=== PATIENT | female | born 1985 | race African-American/Black ===

== ENCOUNTER 2016-07-25 09:33 | Emergency (ER) | payer OTHER ==
[~2016-07-25] VITALS: Ht 162.6 cm; Wt 165.0 kg
[~2016-07-25 09:33] MED LIST: AMLO5TAB2 PO; IBUP600 PO; TYLCOD5S PO
[2016-07-25 09:36] VITALS: BP 169/80; PULSE 86; RESP 16; TEMP 98.2; O2SAT 98
[2016-07-25] MEDS ORDERED: KETOROLAC TROMETHAMINE 30 MG/ML (IVP) VIAL IV PUSH ONE (09:45)
[2016-07-25] MEDS ORDERED: SODIUM CHLORIDE 0.9% FLUSH 5 ML FLUSH IVF PRN (09:45)
--- NOTE | 2016-07-25 09:47 | PD ---
HPI Chief Complaint: Chest Pain Time Seen by Provider: 09:42 Travel History International Travel<30 days: No Contact w/Intl Traveler<30days: No Traveled to known affect area: No History of Present Illness HPI 30-year-old female with history of hypertension here for evaluation of chest pain. The patient has had intermittent left-sided chest pain for the last week described as a tightness, radiating up into her neck, no modifying factors. No known history of cardiac disease. No family history of cardiac disease. She is a nonsmoker. No fevers, chills, cough, recent illness. No paresthesias or motor deficits. No history of DVT or PE. PFSH Past Medical History Asthma: Yes Blood Disorders: No Cardiovascular Problems: No Diminished Hearing: No Gastrointestinal Disorders: No Genitourinary: No Hypertension: Yes Immune Disorder: No Musculoskeletal: Yes (CHRONIC BACK PAIN) Neurologic: No Psychiatric: No Reproductive: No Respiratory: Yes (ASTHMA) : 6 Para: 4 Miscarriage: 2 Past Surgical History AICD: No Arteriovenous Shunt: No Insulin Pump: No Joint Replacement: No Pacemaker: No Other Surgery: No Social History Alcohol Use: Yes (OCC) Tobacco Use: No Substance Use: No Allergies-Medications (Allergen,Severity, Reaction): Coded Allergies: Banana (Verified Allergy, Severe, Rash, 07/25/16) Reported Meds & Prescriptions Reported Meds & Active Scripts Active Amlodipine (Amlodipine Besylate) 5 Mg Tab 5 Mg PO DAILY Reported Fusion Plus (Multi-Vit/Iron-Vitamin C-K06-Alfix Acid-Lacto) 130-75-0.12-1,250- 30 mg Cap 1 Cap PO DAILY Review of Systems Except as stated in HPI: all other systems reviewed are Neg Physical Exam Narrative GENERAL: Well-developed, well-nourished, overweight, comfortable, no acute distress. SKIN: Warm and dry. HEAD: Atraumatic. Normocephalic. EYES: Pupils equal and round. No scleral icterus. No injection or drainage. ENT: Mucous membranes pink and moist. CARDIOVASCULAR: Regular rate and rhythm. RESPIRATORY: No accessory muscle use. Clear to auscultation. Breath sounds equal bilaterally. GASTROINTESTINAL: Abdomen soft, non-tender, nondistended. MUSCULOSKELETAL: No obvious deformities. No clubbing. No cyanosis. No edema. Mild left-sided chest wall tenderness. NEUROLOGICAL: Awake and alert. No obvious cranial nerve deficits. Motor grossly within normal limits. Normal speech. PSYCHIATRIC: Appropriate mood and affect; insight and judgment normal. Data Data Last Documented VS Vital Signs Date Time Temp Pulse Resp B/P Pulse Ox O2 Delivery O2 Flow Rate FiO2 07/25/16 09:53 90 07/25/16 09:50 100 Room Air 07/25/16 09:36 98.2 16 169/80 Orders Electrocardiogram (07/25/16 09:45) Basic Metabolic Panel (Bmp) (07/25/16 09:45) Ckmb (Isoenzyme) Profile (07/25/16 09:45) Complete Blood Count With Diff (07/25/16 09:45) Magnesium (Mg) (07/25/16 09:45) Prothrombin Time / Inr (Pt) (07/25/16 09:45) Act Partial Throm Time (Ptt) (07/25/16 09:45) Troponin I (07/25/16 09:45) Chest, Single Ap (07/25/16 09:45) Ecg Monitoring (07/25/16 09:45) Iv Access Insert/Monitor (07/25/16 09:45) Oximetry (07/25/16 09:45) Sodium Chloride 0.9% Flush (Ns Flush) (07/25/16 09:45) Beta Hcg (Quant/Titer) (07/25/16 09:45) D-Dimer (07/25/16 09:45) Ketorolac Inj (Toradol Inj) (07/25/16 09:45) Ct Pulmonary Angiogram (07/25/16 10:41) CKMB (07/25/16 10:00) CKMB% (07/25/16 10:00) Iohexol 350 Inj (Omnipaque 350 Inj) (07/25/16 12:27) Labs Laboratory Tests Test 07/25/16 10:00 White Blood Count 5.1 TH/MM3 Red Blood Count 4.13 MIL/MM3 Hemoglobin 11.4 GM/DL Hematocrit 34.6 % Mean Corpuscular Volume 83.8 FL Mean Corpuscular Hemoglobin 27.7 PG Mean Corpuscular Hemoglobin 33.1 % Concent Red Cell Distribution Width 16.4 % Platelet Count 277 TH/MM3 Mean Platelet Volume 7.5 FL Neutrophils (%) (Auto) 46.7 % Lymphocytes (%) (Auto) 40.9 % Monocytes (%) (Auto) 8.5 % Eosinophils (%) (Auto) 3.2 % Basophils (%) (Auto) 0.7 % Neutrophils # (Auto) 2.4 TH/MM3 Lymphocytes # (Auto) 2.1 TH/MM3 Monocytes # (Auto) 0.4 TH/MM3 Eosinophils # (Auto) 0.2 TH/MM3 Basophils # (Auto) 0.0 TH/MM3 CBC Comment DIFF FINAL Differential Comment Prothrombin Time 10.4 SEC Prothromb Time International 0.9 RATIO Ratio Activated Partial 26.8 SEC Thromboplast Time D-Dimer Quantitative (PE/DVT) 0.89 MG/L FEU Sodium Level 136 MEQ/L Potassium Level 4.0 MEQ/L Chloride Level 102 MEQ/L Carbon Dioxide Level 27.7 MEQ/L Anion Gap 6 MEQ/L Blood Urea Nitrogen 11 MG/DL Creatinine 0.85 MG/DL Estimat Glomerular Filtration 95 ML/MIN Rate Random Glucose 131 MG/DL Calcium Level 9.0 MG/DL Magnesium Level 2.1 MG/DL Total Creatine Kinase 318 U/L Creatine Kinase MB LESS THAN 0.5 NG/ML Creatine Kinase MB % 0.2 % Troponin I LESS THAN 0.02 NG/ML Human Chorionic Gonadotropin, LESS THAN 1 Quant MIU/ML MDM Medical Decision Making Medical Screen Exam Complete: Yes Emergency Medical Condition: Yes Medical Record Reviewed: Yes Interpretation(s) EKG: Sinus, rate 91, normal axis, normal intervals, no acute ischemic abnormality. Differential Diagnosis ACS, pneumothorax, pericarditis, PE, pneumonia, dissection, musculoskeletal chest wall pain Narrative Course Vital signs show heart rate 86, blood pressure 169/80, pulse ox 98% on room air , oral temp of 98.2F. CBC shows WBC 5.1, hemoglobin 11.4, hematocrit 34.6, platelets 277. BMP is unremarkable. Cardiac enzymes are negative. Beta hCG is negative. D-dimer is 0.89. Chest x-ray: The lungs are clear. CT pulmonary angiogram: CONCLUSION: 1. No PE is identified. 2. Otherwise, no acute finding is visualized within the chest. Patient was made aware of all findings. She is resting comfortably. I do not believe her chest pain is cardiac in nature. I believe she is stable for discharge home with outpatient follow-up with her primary care physician this week. She was informed on when to return to the emergency department. She verbalizes understanding and agreement with plan. Diagnosis Primary Impression: Atypical chest pain Referrals: Primary Care Physician 3 days Additional Instructions: Follow-up with a primary care physician this week. Return to the emergency department for worsening symptoms or any other concerns. Disposition: 01 DISCHARGE HOME Condition: Stable Henry Joiner MD Jul 25, 2016 09:47
[2016-07-25 09:50] VITALS: O2SAT 100
[2016-07-25] MEDS ORDERED: FE FCAP3 PO (09:50)
[2016-07-25 10:31] LABS: AUTOMATED NEUTROPHIL # 2.4 TH/MM3 (1.8-7.7); BASOPHIL % 0.7 % (0.0-2.0); EOSINOPHIL # 0.2 TH/MM3 (0-0.4); EOSINOPHIL % 3.2 % (0.0-4.0); HEMATOCRIT 34.6 % (35.0-46.0); HEMO FLAGS DIFF FINAL; LYMPH % 40.9 % (9.0-44.0); LYMPHOCYTE # 2.1 TH/MM3 (1.0-4.8); MEAN CELL VOLUME 83.8 FL (80.0-100.0); MEAN CORPUSCULAR HEMOGLOBIN 27.7 PG (27.0-34.0); MEAN CORPUSCULAR HGB CONC 33.1 % (32.0-36.0); MONO % 8.5 % (0.0-8.0); NEUT % 46.7 % (16.0-70.0); PLATELET COUNT 277 TH/MM3 (150-450); RED BLOOD COUNT 4.13 MIL/MM3 (4.00-5.30); RED CELL DISTRIBUTION WIDTH 16.4 % (11.6-17.2); WHITE BLOOD COUNT 5.1 TH/MM3 (4.0-11.0)
[2016-07-25 10:34] LABS: APTT (PATIENT) 26.8 SEC (24.3-30.1); INTERNATIONAL NORMALIZED RATIO 0.9 RATIO; PROTHROMBIN TIME - PATIENT 10.4 SEC (9.8-11.6)
--- NOTE | 2016-07-25 10:34 | RADRPT ---
EXAM DATE/TIME: 07/25/2016 09:59 [facility] COMPARISON: CHEST SINGLE AP, August 01, 2014, 22:02. INDICATIONS : Chest pain for 1 week. MEDICAL HISTORY : Asthma. SURGICAL HISTORY : None. ENCOUNTER: Initial ACUITY: 1 week PAIN SCORE: 10/10 LOCATION: Bilateral chest FINDINGS: A single view of the chest demonstrates the lungs to be symmetrically aerated without evidence of mas s, infiltrate or effusion. The cardiomediastinal contours are unremarkable. Osseous structures are intact. CONCLUSION: The lungs are clear. Dylan Mackey MD on July 25, 2016 at 10:32 Board Certified Radiologist. This report was verified electronically.
[2016-07-25 10:38] LABS: ANION GAP 6 MEQ/L (5-15); BICARBONATE 27.7 MEQ/L (21.0-32.0); BLOOD UREA NITROGEN 11 MG/DL (7-18); CHLORIDE 102 MEQ/L (98-107); GLOMERULAR FILTRATION RATE 95 ML/MIN (>89); MAGNESIUM 2.1 MG/DL (1.5-2.5); SODIUM (NA) 136 MEQ/L (136-145)
[2016-07-25 10:42] LABS: BETA HCG QUANT LESS THAN 1 MIU/ML (0-5); CREATINE KINASE 318 U/L (26-192)
[2016-07-25 10:55] LABS: CKMB LESS THAN 0.5 NG/ML (0.5-3.6)
[2016-07-25] MEDS ORDERED: IOHEXOL 350 MG/ML 10 ML VIAL (for RAD DIAG) IV ONE (12:27)
--- NOTE | 2016-07-25 13:11 | RADRPT ---
EXAM DATE/TIME: 07/25/2016 12:08 [facility] COMPARISON: CHEST SINGLE AP, July 25, 2016, 9:59. INDICATIONS : left side chest pain leg swelling today. IV CONTRAST: 50 cc Omnipaque 350 (iohexol) IV RADIATION DOSE: 23.23 CTDIvol (mGy) MEDICAL HISTORY : Cardiovascular disease. Hypertension. SURGICAL HISTORY : None. ENCOUNTER: Initial ACUITY: 1 day PAIN SCALE: 10/10 LOCATION: chest TECHNIQUE: Volumetric scanning of the chest was performed using a pulmonary embolism protocol MIP images were re constructed. Using automated exposure control and adjustment of the mA and/or kV according to patien t size, radiation dose was kept as low as reasonably achievable to obtain optimal diagnostic quality images. FINDINGS: PULMONARY ARTERIES: No filling defects are seen in the pulmonary arteries through the segmental level. LUNGS: There is no consolidation or pneumothorax . No concerning pulmonary nodule is visualized. PLEURAE: There is no pleural thickening or pleural effusion. MEDIASTINUM: There is good visualization of the great vessels of the middle mediastinum. No evidence of mediastin al or hilar adenopathy/mass. MUSCULOSKELETAL: No acute abnormality is identified. MISCELLANEOUS: The visualized upper abdominal organs demonstrate no acute abnormality. CONCLUSION: 1. No PE is identified. 2. Otherwise, no acute finding is visualized within the chest. Aubrey Urrutia MD on July 25, 2016 at 12:58 Board Certified Radiologist. This report was verified electronically.
[2016-07-25 14:00] VITALS: BP 148/88
--- NOTE | 2016-07-25 18:40 | EKG ---
Date Performed: 07/25/2016 Time Performed: 09:53:13 PTAGE: 30 years EKG: Sinus rhythm PREVIOUS TRACING : 05/03/2016 11.31 Compared to prior tracing no significant change DOCTOR: Franklin Tracy Interpretating Date/Time 07/25/2016 18:39:42
== END 2016-07-25 14:18 | disposition home or self-care (01) ==
LOC: NEPA 09:33
DX: R07.89 Other chest pain (principal); I10 Essential (primary) hypertension; J45.909 Unspecified asthma, uncomplicated; G89.29 Other chronic pain
CPT/HCPCS: 71010; 71275; 80048; 82550; 82552; 83735; 84484; 84702; 85025; 85379; 85610; 85730; 93005; 96374; 99285; J1885; Q9967

== ENCOUNTER 2017-07-28 09:08 | Emergency (ER) | payer OTHER ==
[~2017-07-28] VITALS: Ht 162.6 cm; Wt 159.0 kg
[~2017-07-28 09:08] MED LIST changes: +FE FCAP3 PO; -IBUP600 PO; -TYLCOD5S PO
[2017-07-28 09:29] VITALS: BP 148/82; PULSE 70; RESP 14; TEMP 98.9; O2SAT 99
[2017-07-28] MEDS ORDERED: TRAZ100T10 PO (09:50)
[2017-07-28] MEDS ORDERED: ALBUAER3 INH (09:50)
[2017-07-28] MEDS ORDERED: AMLO10TA2 PO (09:50)
[2017-07-28] MEDS ORDERED: SYMB160A INH (09:50)
[2017-07-28] MEDS ORDERED: HYDR12.56 PO (09:50)
[2017-07-28] MEDS ORDERED: OXYC1TAB36 PO (09:50)
[2017-07-28] MEDS ORDERED: DULO-39 PO (09:50)
[2017-07-28] MEDS ORDERED: GABA300C5 PO (09:50)
[2017-07-28] MEDS ORDERED: FE FCAP PO (09:50)
[2017-07-28] MEDS ORDERED: CITA20TA4 PO (09:50)
--- NOTE | 2017-07-28 09:53 | PD ---
HPI Chief Complaint: Pain: Acute or Chronic Time Seen by Provider: 09:50 Travel History International Travel<30 days: No Contact w/Intl Traveler<30days: No Traveled to known affect area: No History of Present Illness HPI 31-year-old female came to the emergency room with history of left-sided chest pain. She describes the pain as sharp stabbing sensation. It started yesterday and has been there continuously up until now. Pain is worse on coughing or moving. Patient has had this kind of pain in the past and she said she was in [facility] couple months ago. Does not recall getting a stress test at that time. Vital signs are stable. Patient is not a smoker. No family history of coronary artery disease. PFS Past Medical History Narrative Medical List of her past medical, surgical, social and family history as reviewed from the nursing note. Anemia: Yes Asthma: Yes Blood Disorders: No Anxiety: Yes Depression: Yes Cardiovascular Problems: Yes (htn) Diminished Hearing: No Gastrointestinal Disorders: No Genitourinary: No Hypertension: Yes Immune Disorder: No Musculoskeletal: Yes (CHRONIC BACK PAIN) Neurologic: No Psychiatric: No Reproductive: No Respiratory: Yes (asthma) Influenza Vaccination: No ?: Not : 6 Para: 4 Miscarriage: 2 Past Surgical History Surgical History: No Previous Surgery AICD: No Arteriovenous Shunt: No Insulin Pump: No Joint Replacement: No Pacemaker: No Other Surgery: No Social History Alcohol Use: Yes (OCC) Tobacco Use: No Substance Use: No Allergies-Medications (Allergen,Severity, Reaction): Coded Allergies: banana (Unverified Allergy, Severe, Rash, 07/28/17) Comments List of allergies reviewed from the nursing note. Reported Meds & Prescriptions Reported Meds & Active Scripts Active Reported Integra (Multi-Vit/Iron-B Comp-Vit C) 62.5-62.5-40-3 mg Cap Unknown Dose PO DAILY Proair Hfa 8.5 GM Inh (Albuterol Sulfate) 90 Mcg/Act Aer 2 Puff INH Q4H PRN 108 mcg/actuation Symbicort Inh (Budesonide/Formoterol Fumarate) 160-4.5 Mcg/Act Aero 2 Puff INH Q12HR Amlodipine (Amlodipine Besylate) 10 Mg Tab 10 Mg PO DAILY Hydrochlorothiazide 12.5 Mg Tab 12.5 Mg PO DAILY Gabapentin 300 Mg Cap 300 Mg PO TID Oxycodone-Acetaminophen 10-325 mg Tab 1 Tab PO Q4H PRN Duloxetine DR (Duloxetine HCl) 40 Mg Capdr 40 Mg PO BID Citalopram (Citalopram Hydrobromide) 20 Mg Tab 20 Mg PO DAILY Trazodone (Trazodone HCl) 100 Mg Tablet 100 Mg PO HS Fusion Plus (Multi-Vit/Iron-Vitamin C-L08-Azfyk Acid-Lacto) 130-75-0.12-1,250- 30 mg Cap 1 Cap PO DAILY Narrative Medication List of her home medications reviewed from the nursing note. Review of Systems Except as stated in HPI: all other systems reviewed are Neg Cardiovascular: Positive: Chest Pain or Discomfort Physical Exam Narrative GENERAL: Awake, alert, morbidly obese, anxious, moderate distress SKIN: Focused skin assessment warm/dry. HEAD: Atraumatic. Normocephalic. EYES: Pupils equal and round. No scleral icterus. No injection or drainage. ENT: No nasal bleeding or discharge. Mucous membranes pink and moist. NECK: Trachea midline. No JVD. CARDIOVASCULAR: Regular rate and rhythm. No murmur appreciated. Tender on palpation of the left chest wall RESPIRATORY: No accessory muscle use. Clear to auscultation. Breath sounds equal bilaterally. GASTROINTESTINAL: Abdomen soft, non-tender, nondistended. Hepatic and splenic margins not palpable. MUSCULOSKELETAL: No obvious deformities. No clubbing. No cyanosis. No edema. NEUROLOGICAL: Awake and alert. No obvious cranial nerve deficits. Motor grossly within normal limits. Normal speech. PSYCHIATRIC: Appropriate mood and affect; insight and judgment normal. Data Data Last Documented VS Vital Signs Date Time Temp Pulse Resp B/P (MAP) Pulse Ox O2 Delivery O2 Flow Rate FiO2 07/28/17 12:30 07/28/17 12:29 67 18 98 Room Air 07/28/17 09:29 98.9 Orders Orders Electrocardiogram (07/28/17 10:10) Basic Metabolic Panel (Bmp) (07/28/17 10:10) Complete Blood Count With Diff (07/28/17 10:10) D-Dimer (07/28/17 10:10) Magnesium (Mg) (07/28/17 10:10) Prothrombin Time / Inr (Pt) (07/28/17 10:10) Troponin I (07/28/17 10:10) Ecg Monitoring (07/28/17 10:10) Bilateral Bp Monitoring (07/28/17 10:10) Iv Access Insert/Monitor (07/28/17 10:10) Oximetry (07/28/17 10:10) Oxygen Administration (07/28/17 10:10) Aspirin Chew (Aspirin Chew) (07/28/17 10:15) Sodium Chloride 0.9% Flush (Ns Flush) (07/28/17 10:15) Chest, Pa & Lat (07/28/17 10:10) Ct Pulmonary Angiogram (07/28/17 ) Iohexol 350 Inj (Omnipaque 350 Inj) (07/28/17 11:39) Ed Discharge Order (07/28/17 11:51) Labs Laboratory Tests Test 07/28/17 10:15 White Blood Count 5.0 TH/MM3 Red Blood Count 4.10 MIL/MM3 Hemoglobin 11.6 GM/DL Hematocrit 35.0 % Mean Corpuscular Volume 85.4 FL Mean Corpuscular Hemoglobin 28.4 PG Mean Corpuscular Hemoglobin Concent 33.2 % Red Cell Distribution Width 16.0 % Platelet Count 279 TH/MM3 Mean Platelet Volume 7.3 FL Neutrophils (%) (Auto) 42.6 % Lymphocytes (%) (Auto) 44.5 % Monocytes (%) (Auto) 9.0 % Eosinophils (%) (Auto) 3.1 % Basophils (%) (Auto) 0.8 % Neutrophils # (Auto) 2.1 TH/MM3 Lymphocytes # (Auto) 2.2 TH/MM3 Monocytes # (Auto) 0.5 TH/MM3 Eosinophils # (Auto) 0.2 TH/MM3 Basophils # (Auto) 0.0 TH/MM3 CBC Comment DIFF FINAL Differential Comment Prothrombin Time 10.3 SEC Prothromb Time International Ratio 1.0 RATIO D-Dimer Quantitative (PE/DVT) 0.78 MG/L FEU Blood Urea Nitrogen 10 MG/DL Creatinine 0.89 MG/DL Random Glucose 96 MG/DL Calcium Level 8.9 MG/DL Magnesium Level 2.2 MG/DL Sodium Level 138 MEQ/L Potassium Level 4.2 MEQ/L Chloride Level 105 MEQ/L Carbon Dioxide Level 27.8 MEQ/L Anion Gap 5 MEQ/L Estimat Glomerular Filtration Rate 90 ML/MIN Troponin I LESS THAN 0.02 NG/ML MDM Medical Decision Making Medical Screen Exam Complete: Yes Emergency Medical Condition: Yes Medical Record Reviewed: Yes Interpretation(s) Twelve-lead EKG was reviewed by me. Normal sinus rhythm, normal axis, motion artifacts, nonspecific ST-T wave changes. Heart rate of 74 bpm. Differential Diagnosis ACS, nonspecific chest pain, non-STEMI, PE Narrative Course 10:42 AM awaiting for blood test results. Patient was given 2 baby aspirin. 11:51 AM blood test results have come back and within normal limit except for slight elevation of the d-dimer. Based on that a CT pulmonary angiogram was ordered. CT scan has been reported negative for any PE. I'll discharge her home. Given her negative troponin, normal EKG and he is pain for almost 24 hours I'm comfortable discharging her home with one set of negative troponin. Procedures EKG Prior to Arrival: No Diagnosis Primary Impression: Atypical chest pain Referrals: Primary Care Physician 2 days Additional Instructions: Please return to ER if condition worsens or any other new concerns. Otherwise follow-up with your primary care. Med/Other Pt SpecificInfo: No Change to Meds Disposition: 01 DISCHARGE HOME Condition: Stable Elkin Garcia MD Jul 28, 2017 09:53
[2017-07-28] MEDS ORDERED: SODIUM CHLORIDE 0.9% FLUSH 10 ML FLUSH IVF PRN (10:15)
[2017-07-28] MEDS ORDERED: ASPIRIN 81 MG CHEW TAB PO ONE (10:15)
[2017-07-28 10:19] VITALS: BP_SYST 100; BP_SYST 124; BP_DIAS 59; BP_DIAS 76; PULSE 69
[2017-07-28 10:32] LABS: AUTOMATED NEUTROPHIL # 2.1 TH/MM3 (1.8-7.7); BASOPHIL % 0.8 % (0.0-2.0); EOSINOPHIL # 0.2 TH/MM3 (0-0.4); EOSINOPHIL % 3.1 % (0.0-4.0); HEMOGLOBIN 11.6 GM/DL (11.6-15.3); LYMPH % 44.5 % (9.0-44.0); LYMPHOCYTE # 2.2 TH/MM3 (1.0-4.8); MEAN CELL VOLUME 85.4 FL (80.0-100.0); MEAN CORPUSCULAR HEMOGLOBIN 28.4 PG (27.0-34.0); MEAN CORPUSCULAR HGB CONC 33.2 % (32.0-36.0); MEAN PLATELET VOLUME 7.3 FL (7.0-11.0); MONOCYTE # 0.5 TH/MM3 (0-0.9); NEUT % 42.6 % (16.0-70.0); PLATELET COUNT 279 TH/MM3 (150-450)
[2017-07-28 10:44] LABS: PROTHROMBIN TIME - PATIENT 10.3 SEC (9.8-11.6)
--- NOTE | 2017-07-28 10:46 | RADRPT ---
EXAM DATE/TIME: 07/28/2017 10:34 [facility] COMPARISON: No previous studies available for comparison. INDICATIONS : Chest pain. MEDICAL HISTORY : None. SURGICAL HISTORY : None. ENCOUNTER: Initial ACUITY: 2 days PAIN SCORE: 8/10 LOCATION: Bilateral middle chest. FINDINGS: The lungs are under aerated with minimal bibasilar parenchymal changes without consolidation. The hea rt and pulmonary vascularity are normal. The portion of the bony skeleton visualized is unremarkable. CONCLUSION: Underated with minimal bibasilar parenchymal changes Scott Mccabe MD FACR on July 28, 2017 at 10:44 Board Certified Radiologist. This report was verified electronically.
[2017-07-28 10:54] LABS: TROPONIN I LESS THAN 0.02 NG/ML (0.02-0.05)
[2017-07-28 10:56] LABS: BICARBONATE 27.8 MEQ/L (21.0-32.0); BLOOD UREA NITROGEN 10 MG/DL (7-18); CALCIUM 8.9 MG/DL (8.5-10.1); CHLORIDE 105 MEQ/L (98-107); CREATININE 0.89 MG/DL (0.50-1.00); GLOMERULAR FILTRATION RATE 90 ML/MIN (>89); GLUCOSE,RANDOM 96 MG/DL (74-106); MAGNESIUM 2.2 MG/DL (1.5-2.5); SODIUM (NA) 138 MEQ/L (136-145)
[2017-07-28 10:57] LABS: D-DIMER 0.78 MG/L FEU (0.00-0.50)
[2017-07-28] MEDS ORDERED: IOHEXOL 350 MG/ML 10 ML VIAL (for RAD DIAG) IVCONTRAST ONE (11:39)
--- NOTE | 2017-07-28 11:49 | RADRPT ---
EXAM DATE/TIME: 07/28/2017 11:26 [facility] COMPARISON: CT PULMONARY ANGIOGRAM, July 25, 2016, 12:08. INDICATIONS : Sharp mid chest pain with dyspnea IV CONTRAST: 55 cc Omnipaque 350 (iohexol) IV RADIATION DOSE: 23.11 CTDIvol (mGy) MEDICAL HISTORY : Hypertension. SURGICAL HISTORY : None. ENCOUNTER: Initial ACUITY: 2 days PAIN SCALE: 8/10 LOCATION: chest TECHNIQUE: Volumetric scanning of the chest was performed using a pulmonary embolism protocol MIP images were re constructed. Using automated exposure control and adjustment of the mA and/or kV according to patien t size, radiation dose was kept as low as reasonably achievable to obtain optimal diagnostic quality images. DICOM format image data is available electronically for review and comparison. Follow-up recommendations for detected pulmonary nodules are based at a minimum on nodule size and pa tient risk factors according to Fleischner Society Guidelines. FINDINGS: PULMONARY ARTERIES: No filling defects are seen in the pulmonary arteries through the segmental level. LUNGS: There is no consolidation or pneumothorax . No concerning pulmonary nodule is visualized. PLEURAE: There is no pleural thickening or pleural effusion. MEDIASTINUM: The heart and great vessels demonstrate no acute finding. No lymphadenopathy is seen. MUSCULOSKELETAL: No acute osseous abnormality is visualized. MISCELLANEOUS: The visualized upper abdominal organs demonstrate no acute abnormality. CONCLUSION: No PE is identified. Additionally, no acute finding is identified to explain the patient's chest pain . Aubrey Urrutia MD on July 28, 2017 at 11:43 Board Certified Radiologist. This report was verified electronically.
[2017-07-28 12:29] VITALS: BP 131/67; PULSE 67; RESP 18; O2SAT 98
--- NOTE | 2017-07-29 22:58 | EKG ---
Date Performed: 07/28/2017 Time Performed: 09:47:32 PTAGE: 31 years EKG: Sinus rhythm WITH FIRST DEGREE AV BLOCK POSSIBLE RIGHT VENTRICULAR CONDUCTION DELAY ABNORMAL ECG NO PREVIOUS TRACING DOCTOR: Leona Villela Interpretating Date/Time 07/29/2017 22:55:57
== END 2017-07-28 12:30 | disposition home or self-care (01) ==
LOC: NEPE 09:08
DX: R07.89 Other chest pain (principal); I10 Essential (primary) hypertension; J45.909 Unspecified asthma, uncomplicated; Z79.899 Other long term (current) drug therapy
CPT/HCPCS: 71046; 71275; 80048; 83735; 84484; 85025; 85379; 85610; 93005; 99285; Q9967

== ENCOUNTER 2017-11-19 19:53 | Emergency (ER) | payer OTHER ==
[~2017-11-19] VITALS: Ht 162.6 cm; Wt 159.0 kg
[~2017-11-19 19:53] MED LIST changes: +ALBUAER3 INH; +AMLO10TA2 PO; -AMLO5TAB2 PO; +CITA20TA4 PO; +DULO-39 PO; +FE FCAP PO; +GABA300C5 PO; +HYDR12.56 PO; +OXYC1TAB36 PO; +SYMB160A INH; +TRAZ100T10 PO
[2017-11-19 20:06] VITALS: BP 182/92; PULSE 91; RESP 16; TEMP 99.6; O2SAT 100
[2017-11-19] MEDS ORDERED: ONDANSETRON ODT 4 MG TAB PO ONE (21:45)
[2017-11-19] MEDS ORDERED: ALUMINUM/MAGNESIUM/SIMETH 30 ML CUP PO ONE (21:45)
[2017-11-19] MEDS ORDERED: LIDOCAINE VISCOUS 2% SOLN 15 ML UDC PO ONE (21:45)
--- NOTE | 2017-11-19 21:52 | PD ---
HPI Chief Complaint: Abdominal Pain Time Seen by Provider: 21:37 Travel History International Travel<30 days: No Contact w/Intl Traveler<30days: No Traveled to known affect area: No History of Present Illness HPI 32yo F with PMH of chronic back pain, asthma presents to the ED with c/o epigastric abdominal pain for 4 days. Said pain is sharp, epigastric and constant. Pain is nonradiating. Pain is moderate in severity. +Nausea and vomiting. Said she had diarrhea but feels like she is constipated even though her last bowel movement was this morning and it was watery. Denies any fever, chest pain, sob, dysuria, hematuria, vaginal bleeding or discharge. PFSH Past Medical History Anemia: Yes Asthma: Yes Blood Disorders: No Anxiety: Yes Depression: Yes Cardiovascular Problems: Yes (HTN) Diminished Hearing: No Gastrointestinal Disorders: No Genitourinary: No Hypertension: Yes Immune Disorder: No Musculoskeletal: Yes (CHRONIC BACK PAIN) Neurologic: No Psychiatric: No Reproductive: No Respiratory: Yes (Asthma) Influenza Vaccination: No ?: Not LMP: july 2017 : 6 Para: 4 Miscarriage: 2 Past Surgical History Surgical History: No Previous Surgery AICD: No Arteriovenous Shunt: No Insulin Pump: No Joint Replacement: No Pacemaker: No Other Surgery: No Social History Alcohol Use: Yes (OCC) Tobacco Use: No Substance Use: No Allergies-Medications (Allergen,Severity, Reaction): Coded Allergies: banana (Unverified Allergy, Severe, Rash, 11/19/17) Reported Meds & Prescriptions Reported Meds & Active Scripts Active Reported Integra (Multi-Vit/Iron-B Comp-Vit C) 62.5-62.5-40-3 mg Cap Unknown Dose PO DAILY Proair Hfa 8.5 GM Inh (Albuterol Sulfate) 90 Mcg/Act Aer 2 Puff INH Q4H PRN 108 mcg/actuation Symbicort Inh (Budesonide/Formoterol Fumarate) 160-4.5 Mcg/Act Aero 2 Puff INH Q12HR Amlodipine (Amlodipine Besylate) 10 Mg Tab 10 Mg PO DAILY Hydrochlorothiazide 12.5 Mg Tab 12.5 Mg PO DAILY Gabapentin 300 Mg Cap 300 Mg PO TID Oxycodone-Acetaminophen 10-325 mg Tab 1 Tab PO Q4H PRN Duloxetine DR (Duloxetine HCl) 40 Mg Capdr 40 Mg PO BID Citalopram (Citalopram Hydrobromide) 20 Mg Tab 20 Mg PO DAILY Trazodone (Trazodone HCl) 100 Mg Tablet 100 Mg PO HS Fusion Plus (Multi-Vit/Iron-Vitamin C-N88-Psdfk Acid-Lacto) 130-75-0.12-1,250- 30 mg Cap 1 Cap PO DAILY Review of Systems Except as stated in HPI: all other systems reviewed are Neg Physical Exam Narrative GENERAL: 32yo F in mild distress. SKIN: Focused skin assessment warm/dry. HEAD: Atraumatic. Normocephalic. EYES: Pupils equal and round. No scleral icterus. No injection or drainage. ENT: No nasal bleeding or discharge. Mucous membranes pink and moist. NECK: Trachea midline. No JVD. CARDIOVASCULAR: Regular rate and rhythm. No murmur appreciated. RESPIRATORY: No accessory muscle use. Clear to auscultation. Breath sounds equal bilaterally. GASTROINTESTINAL: Abdomen soft, obese abdomen. Mild ttp epigastric region. No rebound tenderness or guarding. No RLQ ttp. MUSCULOSKELETAL: No obvious deformities. No clubbing. No cyanosis. No edema. NEUROLOGICAL: Awake and alert. No obvious cranial nerve deficits. Motor grossly within normal limits. Normal speech. PSYCHIATRIC: Appropriate mood and affect; insight and judgment normal. Data Data Last Documented VS Vital Signs Date Time Temp Pulse Resp B/P (MAP) Pulse Ox O2 Delivery O2 Flow Rate FiO2 11/20/17 00:17 20 11/19/17 20:06 99.6 91 182/92 (122) 100 Orders Orders Complete Blood Count With Diff (11/19/17 21:43) Comprehensive Metabolic Panel (11/19/17 21:43) Lipase (11/19/17 21:43) Urinalysis - C+S If Indicated (11/19/17 21:43) Al-Mag Hy-Si 40-40-4 Mg/Ml Liq (Mag-Al P (11/19/17 21:45) Lidocaine 2% Viscous (Xylocaine 2% Visco (11/19/17 21:45) Ed Urine Pregnancytest Poc (11/19/17 21:43) Ondansetron Odt (Zofran Odt) (11/19/17 21:45) Metoclopramide Inj (Reglan Inj) (11/19/17 23:30) Ketorolac Inj (Toradol Inj) (11/19/17 23:30) Labs Laboratory Tests Test 11/19/17 22:10 White Blood Count 6.9 TH/MM3 Red Blood Count 3.99 MIL/MM3 Hemoglobin 11.5 GM/DL Hematocrit 34.3 % Mean Corpuscular Volume 86.0 FL Mean Corpuscular Hemoglobin 28.8 PG Mean Corpuscular Hemoglobin Concent 33.5 % Red Cell Distribution Width 16.5 % Platelet Count 296 TH/MM3 Mean Platelet Volume 7.3 FL Neutrophils (%) (Auto) 57.5 % Lymphocytes (%) (Auto) 31.8 % Monocytes (%) (Auto) 7.5 % Eosinophils (%) (Auto) 2.0 % Basophils (%) (Auto) 1.2 % Neutrophils # (Auto) 4.0 TH/MM3 Lymphocytes # (Auto) 2.2 TH/MM3 Monocytes # (Auto) 0.5 TH/MM3 Eosinophils # (Auto) 0.1 TH/MM3 Basophils # (Auto) 0.1 TH/MM3 CBC Comment DIFF FINAL Differential Comment Urine Color YELLOW Urine Turbidity CLEAR Urine pH 6.0 Urine Specific Grace 1.024 Urine Protein NEG mg/dL Urine Glucose (UA) NEG mg/dL Urine Ketones NEG mg/dL Urine Occult Blood SMALL Urine Nitrite NEG Urine Bilirubin NEG Urine Urobilinogen 2.0 mg/dL Urine Leukocyte Esterase TRACE Urine RBC 2 /hpf Urine WBC 1 /hpf Urine Squamous Epithelial Cells 2 /hpf Urine Mucus FEW /lpf Microscopic Urinalysis Comment CULT NOT INDICATED Blood Urea Nitrogen 10 MG/DL Creatinine 0.86 MG/DL Random Glucose 93 MG/DL Total Protein 8.5 GM/DL Albumin 3.6 GM/DL Calcium Level 9.0 MG/DL Alkaline Phosphatase 67 U/L Aspartate Amino Transf (AST/SGOT) 13 U/L Alanine Aminotransferase (ALT/SGPT) 17 U/L Total Bilirubin 0.2 MG/DL Sodium Level 142 MEQ/L Potassium Level 4.1 MEQ/L Chloride Level 107 MEQ/L Carbon Dioxide Level 25.6 MEQ/L Anion Gap 9 MEQ/L Estimat Glomerular Filtration Rate 93 ML/MIN Lipase 154 U/L [facility] Medical Decision Making Medical Screen Exam Complete: Yes Emergency Medical Condition: Yes Differential Diagnosis Gastritis vs. pancreatitis vs. peptic ulcer disease vs. gastroenteritis vs. UTI Narrative Course 32yo F with epigastric abdominal pain for 4 days. Pt is well appearing. Labs reviewed, no leukocytosis. H/H low at 11.5/34.3 but this is at baseline. CMP unremarkable. Lipase normal. UA showed WBC 1. Culture not indicated. Urine negative. Pt given zofran and GI cocktail and pain and nausea has improved. Said she wants something else so reglan and toradol given. Pt reevaluated at bedside and feels much better. No longer has nausea or abdominal pain. Return precautions given. Diagnosis Primary Impression: Abdominal pain Qualified Codes: R10.13 - Epigastric pain Patient Instructions: General Instructions Departure Forms: Tests/Procedures Additional Instructions: Please follow up with your primary care physician in 2-3 days. Return to the ED if symptoms worsen. Med/Other Pt SpecificInfo: Prescription(s) given Scripts Ranitidine (Zantac) 150 Mg Tab 150 MG PO BID for Reduce Stomach Acid for 10 Days, #20 TAB 0 Refills Prov: Karla Robles DO 11/20/17 Disposition: 01 DISCHARGE HOME Condition: Stable Karla Robles DO Nov 19, 2017 21:52
[2017-11-19 22:19] LABS: BASOPHIL # 0.1 TH/MM3 (0-0.2); BASOPHIL % 1.2 % (0.0-2.0); EOSINOPHIL # 0.1 TH/MM3 (0-0.4); HEMATOCRIT 34.3 % (35.0-46.0); HEMOGLOBIN 11.5 GM/DL (11.6-15.3); LYMPH % 31.8 % (9.0-44.0); LYMPHOCYTE # 2.2 TH/MM3 (1.0-4.8); MEAN CORPUSCULAR HEMOGLOBIN 28.8 PG (27.0-34.0); MEAN CORPUSCULAR HGB CONC 33.5 % (32.0-36.0); MEAN PLATELET VOLUME 7.3 FL (7.0-11.0); MONO % 7.5 % (0.0-8.0); MONOCYTE # 0.5 TH/MM3 (0-0.9); NEUT % 57.5 % (16.0-70.0); PLATELET COUNT 296 TH/MM3 (150-450); RED BLOOD COUNT 3.99 MIL/MM3 (4.00-5.30); RED CELL DISTRIBUTION WIDTH 16.5 % (11.6-17.2); WHITE BLOOD COUNT 6.9 TH/MM3 (4.0-11.0)
[2017-11-19 22:30] LABS: BILIRUBIN, URINE NEG (NEG); BLOOD, URINE SMALL (NEG); GLUCOSE,URINE NEG (NEG); KETONE, URINE NEG (NEG); MUCUS URINE FEW /lpf (OCC); NITRITE,URINE NEG (NEG); SQUAMOUS EPITHELIAL CELL URINE 2 /hpf (0-5); URINE COLOR YELLOW (YELLW/STRAW); URINE LEUKOCYTE ESTERASE TRACE (NEG)
[2017-11-19 22:37] LABS: ALBUMIN 3.6 GM/DL (3.4-5.0); ALT (GPT) 17 U/L (10-53); AST (GOT) 13 U/L (15-37); BICARBONATE 25.6 MEQ/L (21.0-32.0); BLOOD UREA NITROGEN 10 MG/DL (7-18); CHLORIDE 107 MEQ/L (98-107); CREATININE 0.86 MG/DL (0.50-1.00); GLOMERULAR FILTRATION RATE 93 ML/MIN (>89); GLUCOSE,RANDOM 93 MG/DL (74-106); SODIUM (NA) 142 MEQ/L (136-145)
[2017-11-19 22:39] LABS: ALKALINE PHOSPHATASE 67 U/L (45-117); TOTAL BILIRUBIN ADULT 0.2 MG/DL (0.2-1.0); TOTAL PROTEIN 8.5 GM/DL (6.4-8.2)
[2017-11-19] MEDS ORDERED: METOCLOPRAMIDE INJ 10 MG in SODIUM CHLORIDE 0.9% INJ 50 ML IV ONE (23:30)
[2017-11-19] MEDS ORDERED: KETOROLAC TROMETHAMINE 30 MG/ML (IVP) VIAL IV PUSH ONE (23:30)
[2017-11-20 00:17] VITALS: RESP 20
[2017-11-20] MEDS ORDERED: ZANT150T2 PO (00:30)
== END 2017-11-20 00:50 | disposition home or self-care (01) ==
LOC: NEPD 19:53
DX: R10.13 Epigastric pain (principal); R11.0 Nausea; R19.7 Diarrhea, unspecified; G89.29 Other chronic pain; M54.9 Dorsalgia, unspecified; J45.909 Unspecified asthma, uncomplicated; F41.9 Anxiety disorder, unspecified; F32.9 Major depressive disorder, single episode, unspecified; I10 Essential (primary) hypertension
CPT/HCPCS: 80053; 81001; 83690; 84703; 85025; 96365; 96375; 99284; J1885; J2765